=== PATIENT | male | born 1940 | race Caucasian/White ===

== ENCOUNTER 2017-02-21 09:32 | Day surgery (SDC) | payer MEDICARE, OTHER ==
[~2017-02-21 09:32] MED LIST: BRIMONIDINE 0.2% OPHTH DROPS 5 ML ONE; CYCLOPENTOLATE 1% OPHTH DROPS 2 ML ONE; KETOROLAC 0.45% OPHTH DROPS ONE; PHENYLEPHRINE 2.5% OPHTH 2 ML DROPS ONE; TIMOLOL 0.5% OPHTH DROPS ONE
[2017-02-21] MEDS: PROPARACAINE 0.5% OPHTH DROPS 15 ML ONE ×2 (10:04→10:05)
[2017-02-21] MEDS ORDERED: LACTATED RINGERS 500 ML IV ONE (10:10)
[2017-02-21] MEDS ORDERED: PROPARACAINE 0.5% OPHTH DROPS 15 ML RIGHTEYE ONE (11:20)
[2017-02-21] MEDS ORDERED: TIMOLOL 0.5% OPHTH DROPS OPTH ONE (11:21)
[2017-02-21] MEDS ORDERED: CHONDR SULF/HYALURONATE SYRINGE IO ONE (11:21)
[2017-02-21] MEDS ORDERED: EPINEPHrine 1 MG/ML AMP IVP ONE (11:21)
[2017-02-21] MEDS ORDERED: BRIMONIDINE 0.2% OPHTH DROPS 5 ML OPTH ONE (11:21)
[2017-02-21] MEDS ORDERED: BSS/LIDOCAINE/EPINEPHRINE 1 ML SYRINGE IO ONE ×2 (11:22)
[2017-02-21] MEDS ORDERED: TRIAMCIN/MOXIFLOX/VANCO 1 ML VIAL IO ONE ×2 (11:22)
[2017-02-21] MEDS ORDERED: MIDAZOLAM 2 MG/2 ML VIAL IVP ONE (11:40)
[2017-02-21 12:02] VITALS: BP 136/85
--- NOTE | 2017-02-22 06:05 | OPERATIVE REPORT ---
DATE OF SURGERY: 02/21/2017 00:00:00 PREOPERATIVE DIAGNOSIS: Visually significant cataract, right eye. Cataract surgery was performed on t he left eye on 02/24/2015. POSTOPERATIVE DIAGNOSIS: Visually significant cataract, right eye. Cataract surgery was performed on the left eye on 02/24/2015. NAME OF PROCEDURE: Phacoemulsification posterior chamber intraocular lens implant, right eye. SURGEON: Jef Orr MD. ANESTHESIA: Monitored anesthesia care. COMPLICATIONS: None. OPERATIVE INDICATIONS: This is a 76-year-old man with progressive vision loss in the right eye due to 2+ nuclear sclerotic cataract. Best corrected visual acuity was 20/25 with glare to 20/80 in the lef t eye. Indications for surgery were overall decrease in vision, difficulty seeing words on the comput er screen, difficulty reading, difficulty seeing words, close captions, or game scores on TV, difficu lty seeing street signs, difficulty driving in low light or at night, difficulty driving at night bec ause of head lights from other vehicles or streetlights, difficulty with glare or bright lights in an y situation and difficulty track a golf ball. He was consented at length concerning the risks and ela efits of cataract surgery, after which he expressed a desire to proceed with surgery. OPERATIVE PROCEDURE: The patient was taken into OR #3 and placed under monitored anesthesia care. A s urgical time-out was conducted confirming the correct patient, correct procedure and correct surgical site. He was placed under the LenSx laser and his eye docked to the laser interface. The laser perfo rmed the capsulotomy, lens softening, phaco wounds, and arcuate keratotomy incisions. He was then mov ed into the operating microscope, given topical anesthesia, and then prepped and draped in the usual sterile fashion. The eye was entered at the 12 and 9 o'clock positions. Intracameral Shugarcaine was injected into the anterior chamber, followed by Viscoat. A capsulorrhexis flap created by the LenSx l aser was removed from the anterior chamber. The nucleus was hydrodissected and phacoemulsified. Lolita x was evacuated using automated infusion aspiration. Provisc was injected into the capsular bag and a 19.5 diopter toric intraocular lens was inserted into the bag. I/A was used to evacuate the viscoela stic materials. The eye was inflated to a physiologic pressure using balanced salt solution and found to be watertight. The lens was verified to be in the proper positioning of axis 081. Approximately 0 .7 mL of a mixture of triamcinolone, moxifloxacin, and vancomycin was injected subconjunctivally in [facility] superior quadrant for infection and inflammation prophylaxis. The eye was then verified to be wate rtight and the lens was still in the expected position of axis 081. The patient was then taken from [facility] operating room in good condition and given postoperative instructions. JOB #: [id number] EXT JOB #:[id number]
== END 2017-02-21 09:33 | disposition home or self-care (01) ==
LOC: SDS 09:32
PROVIDERS: ATTEND Ophthalmology
PROC: 08RJ3JZ Replacement of Right Lens with Synthetic Substitute, Percutaneous Approach (ICD-10-PCS; principal; 2017-02-21 10:30)
DX: H25.11 Age-related nuclear cataract, right eye (principal); I10 Essential (primary) hypertension; J44.9 Chronic obstructive pulmonary disease, unspecified
CPT/HCPCS: 66984; A9270; J3490; V2632; V2787

== ENCOUNTER 2017-07-13 13:43 | Outpatient (CLI) | payer MEDICARE, OTHER ==
--- NOTE | 2017-07-15 08:16 | XRAY Report ---
EXAM: RIGHT HIP AND PELVIS RADIOGRAPHY EXAM DATE: 07/13/2017 02:33 PM. HISTORY: Backache lower, pain in right hip. COMPARISONS: None. TECHNIQUE: 1 view of the pelvis and 1 view of the hip. FINDINGS: Bones: No acute fracture or acute bone lesion. Nodular calcification projecting just inferior to the right ischium could represent sequelae of old avulsion fracture or chronic enthesopathy. Mild calcifi cations adjacent to the greater tuberosities bilaterally suggest chronic enthesopathy. Joints: Mild degenerative disease of the hips, right greater than left. Soft Tissues: Vascular calcifications demonstrated. No soft tissue swelling. IMPRESSION: 1. Mild degenerative disease of the hips, right greater than left. 2. Probable bilateral chronic trochanteric enthesopathy. 3. Calcification inferior to the right ischium could represent sequelae of old evulsion fracture or c hronic enthesopathy. [facility] Referring Provider Line: [phone] SITE ID: [id number]
--- NOTE | 2017-07-15 08:16 | XRAY Report ---
EXAM: LUMBOSACRAL SPINE RADIOGRAPHY EXAM DATE: 07/13/2017 02:32 PM. CLINICAL HISTORY: Backache lower, pain in right hip. COMPARISONS: None. TECHNIQUE: 2 views. FINDINGS: Alignment: No scoliosis. Mild grade 1 anterior listhesis at L5-S1. No hayden spondylolysis demonstrate d. Bones: Five xgn-oxw-psidamw lumbar vertebral bodies are present. No fractures or bone lesions. Disks: Substantial disk space narrowing is not demonstrated. Multilevel moderate vertebral body spurr ing including some bridging spurring, greatest at L1-L2. Facets: Evidence of at least mild L4-L5 and L5-S1 degenerative facet disease. Sacroiliac Joints: Unremarkable. Soft Tissues: Substantial aortic and iliac calcifications are demonstrated. The visualized bowel gas pattern is normal. IMPRESSION: 1. Lumbar spondylosis, as above. 2. There is at least mild L4-L5 and L5-S1 degenerative facet disease. 3. Mild grade 1 anterior listhesis at L5-S1. [facility] Referring Provider Line: [phone] SITE ID: [id number]
== END 2017-07-13 13:44 | disposition home or self-care (01) ==
LOC: DI 13:43
PROVIDERS: ATTEND Family Medicine
DX: M47.896 Other spondylosis, lumbar region (principal); M47.897 Other spondylosis, lumbosacral region; M43.17 Spondylolisthesis, lumbosacral region; M16.0 Bilateral primary osteoarthritis of hip
CPT/HCPCS: 72100

== ENCOUNTER 2018-07-18 11:55 | Outpatient (CLI) | payer MEDICARE, OTHER ==
--- NOTE | 2018-07-18 12:32 | XRAY Report ---
Reason: CHRONIC OBSTRUCTIVE PULMONARY DISEASE, UNSPECIFIED Procedure Date: 07/18/2018 Accession Number: [id number] / [id number] Procedure: XRN - Chest 2 View X-Ray CPT Code: 66683 FULL RESULT: EXAM: CHEST RADIOGRAPHY EXAM DATE: 07/18/2018 12:17 PM. CLINICAL HISTORY: Chronic obstructive pulmonary disease, unspecified. COMPARISON: None. TECHNIQUE: 2 views. FINDINGS: Lungs/Pleura: No focal opacities evident. No pleural effusion. No pneumothorax. Lung volumes are high with flattening of diaphragms which is compatible with provided history of COPD. Mediastinum: The cardiomediastinal silhouette is nonenlarged, aortic arch is mildly calcified. Other: None. IMPRESSION: Obstructive configuration with no definite acute airspace disease. [facility]
== END 2018-07-18 11:56 | disposition home or self-care (01) ==
LOC: DI.N 11:55
PROVIDERS: ATTEND Family Medicine
DX: J44.9 Chronic obstructive pulmonary disease, unspecified (principal)
CPT/HCPCS: 71046

== ENCOUNTER 2020-08-16 17:02 | Outpatient (CLI) | payer MEDICARE, OTHER | END 2020-08-16 17:03 | disposition home or self-care (01) | LOC: COV 17:02 | PROVIDERS: ATTEND Internal Medicine | DX: Z01.812 Encounter for preprocedural laboratory examination (principal); Z20.822 Contact with and (suspected) exposure to COVID-19 ==